=== PATIENT | female | born 1960 | race Two or more races ===

== ENCOUNTER 2019-05-21 21:23 | Emergency (ER) | payer SELFPAY ==
[~2019-05-21] VITALS: Ht 157.5 cm; Wt 74.8 kg
[2019-05-22 02:40] VITALS: BP 164/77
== END 2019-05-22 03:03 | disposition home or self-care (01) ==
LOC: ER 21:28
DX: S33.5XXA Sprain of ligaments of lumbar spine, initial encounter (principal); M62.838 Other muscle spasm; V89.2XXA Person injured in unspecified motor-vehicle accident, traffic, initial encounter; Y93.I9 Activity, other involving external motion; Y92.410 Unspecified street and highway as the place of occurrence of the external cause; Y99.8 Other external cause status
CPT/HCPCS: 70450; 71250; 72125; 72128; 72131; 73130; 74176

== ENCOUNTER 2021-11-13 22:24 | Inpatient (IN) | payer OTHER ==
[~2021-11-13] VITALS: Ht 157.5 cm; Wt 72.4 kg
[2021-11-13 23:05] LABS: Urine WBC None Seen /hpf (0 - 5)
[2021-11-13 23:28] LABS: Basophils # (auto) 0.1 10 ^3/uL (0-0.2); Eosinophils # (auto) 0.2 10 ^3/uL (0-0.8); Eosinophils % (auto) 2.2 % (0.0-7.0); Hematocrit 39.5 % (36.0-46.0); Hemoglobin 13.8 g/dL (12.2-16.2); Lymphocytes # (auto) 2.7 10 ^3/uL (0.4-5.4); Lymphocytes % (auto) 31.3 % (10.0-50.0); Mean Corpuscular Hemoglobin 28.8 pg (28.0-32.0); Mean Corpuscular Volume 82.5 fL (80.0-100.0); Monocytes # (auto) 0.5 10 ^3/uL (0-1.3); Monocytes % (auto) 5.7 % (0.0-12.0); Neutrophils # (auto) 5.1 10 ^3/uL (1.6-8.6); Neutrophils % (auto) 59.8 % (37.0-80.0); Nucleated Red Blood Cells % 0.2 %; Red Blood Cells 4.79 10^6/uL (4.0-5.20); Red Cell Distribution Width 15.2 % (11.8-14.3); White Blood Cell 8.5 10^3/uL (4.4-10.8)
[2021-11-13 23:32] LABS: Urine Bacteria FEW /hpf (None Seen); Urine Blood Negative /uL (Negative); Urine Specific Gravity 1.007 (1.001-1.035)
[2021-11-13 23:55] LABS: Calcium 9.1 mg/dL (8.5-10.1); Potassium 3.8 mmol/L (3.5-5.1)
[2021-11-13 23:59] LABS: BUN/Creatinine Ratio 12.6
[2021-11-14] VITALS (53 sets, daily range): BP systolic 96–162; BP diastolic 40–100
[2021-11-14 00:01] LABS: Bilirubin, Total 0.7 mg/dL (0.2-1.0); Total Protein 7.7 g/dL (6.4-8.2)
[2021-11-14] MEDS ORDERED: DONNATAL 5ml ORAL Elix (BELLADONNA ALK-PHENOBARB) PO ONE (00:45)
[2021-11-14] MEDS ORDERED: ALUM & MAG HYDROX-SIMETH LIQ(MAALOX) 30 ML PO ONE (00:45)
[2021-11-14] MEDS ORDERED: IOHEXOL 350 MG/ML 100ML IJ ONE ×2 (01:02→18:14)
[2021-11-14] MEDS ORDERED: ASPirin 325 MG TAB PO ONE (02:00)
[2021-11-14] MEDS ORDERED: HEPARIN DRIP/D5W 100UNITS/ML 250 ML IV SCH (02:00)
[2021-11-14] MEDS ORDERED: CLOPIDOGREL 300 MG TAB PO ONE (02:00)
[2021-11-14 02:18] LABS: Lactic Acid w/Reflex 2.4 mmol/L (0.4-2.0)
[2021-11-14 02:29] LABS: Magnesium 2.2 mg/dL (1.6-2.6)
[2021-11-14] MEDS ORDERED: NITROGLYCERIN 0.4 MG SL TAB SL ONE ×2 (02:30)
[2021-11-14 02:39] LABS: INR 1.05 (0.9-1.15); Partial Thromboplastin Time 30.2 sec (23.6-33.0)
[2021-11-14] MEDS ORDERED: NITROGLYCERIN 50MG/250ML 250 ML IV ONE (03:00)
[2021-11-14] MEDS ORDERED: HEPARIN SODIUM (PORCINE) 5000 UNITS/ML 1ML VIAL IV ONE (03:45)
[2021-11-14] MEDS ORDERED: ONDANSETRON HCL 4 MG/2 ML VIAL IV PRN (07:00)
[2021-11-14] MEDS: SODIUM CHLORIDE 0.9% 1,000 ML IV SCH ×2 (07:00→20:22)
[2021-11-14] MEDS ORDERED: NITROGLYCERIN 0.4 MG SL TAB SL PRN (07:00)
[2021-11-14 07:52] LABS: Triglycerides 418 mg/dL (< 150)
[2021-11-14 08:10] LABS: Cholesterol 235 mg/dL (< 200); HDL Cholesterol 26 mg/dL (40-59)
[2021-11-14 11:00] LABS: INR 1.07 (0.9-1.15)
[2021-11-14] MEDS: MORPHINE SULFATE INJECTION 2 MG/ML SYRG IV PRN (11:48)
[2021-11-14] MEDS: HEPARIN DRIP/D5W 100UNITS/ML 250 ML IV SCH (14:00)
[2021-11-14] MEDS ORDERED: levoFLOXacin 500MG 100 ML IV ONE (14:00)
[2021-11-14] MEDS: PANTOPRAZOLE 40 MG/10 ML VIAL INJ IV SCH (15:55)
[2021-11-14] MEDS: metroNIDAZOLE 500MG/100ML 100 ML IV SCH ×2 (16:02→21:55)
[2021-11-14] MEDS ORDERED: KETOROLAC TROMETH 30 MG/ML 1ML VIAL IV ONE (18:00)
[2021-11-14] MEDS ORDERED: ANGIOMAX 250 MG VIAL IV ONE (18:13)
[2021-11-14] MEDS ORDERED: fentaNYL CITRATE 100 MCG/2 ML VL ONE (18:13)
[2021-11-14] MEDS ORDERED: HEPARIN IN NS 1000Units/500mL 1,500 ML ONE (18:14)
[2021-11-14] MEDS ORDERED: SODIUM CHL 0.9% 50 ML ONE (18:14)
[2021-11-14] MEDS ORDERED: LIDOCAINE 2%HCL (LOCAL ANESTH.) INJ 20ML MDV ONE (18:14)
[2021-11-14] MEDS ORDERED: MIDAZOLAM HCL 2MG/2ML 2ml VIAL (1mg/ml) ONE (18:14)
[2021-11-14] MEDS ORDERED: ONDANSETRON HCL 4 MG/2 ML VIAL ONE ×2 (18:46→19:36)
[2021-11-14 19:05] LABS: INR 1.06 (0.9-1.15); Partial Thromboplastin Time 39.3 sec (23.6-33.0)
[2021-11-14] MEDS ORDERED: HYDROmorphone HCL 2 MG/ML VL ONE (19:20)
[2021-11-14] MEDS ORDERED: TICAGRELOR 90 MG TAB ONE (19:22)
[2021-11-14] MEDS ORDERED: FUROSEMIDE 20 MG/2 ML VIAL ONE (19:29)
[2021-11-14] MEDS ORDERED: HYDROmorphone HCL 2 MG/ML VL IV PRN (20:15)
[2021-11-14] MEDS: ATORVASTATIN 20 MG TAB PO SCH (21:56)
[2021-11-14] MEDS ORDERED: ATORVASTATIN 20 MG TAB PO SCH (22:00)
[2021-11-15] VITALS (23 sets, daily range): BP systolic 115–151; BP diastolic 57–81
[2021-11-15 02:40] LABS: INR 1.08 (0.9-1.15); Partial Thromboplastin Time 57.7 sec (23.6-33.0)
[2021-11-15] MEDS: HEPARIN DRIP/D5W 100UNITS/ML 250 ML IV SCH ×2 (03:08→19:03)
[2021-11-15 04:13] LABS: Basophils # (auto) 0 10 ^3/uL (0-0.2); Basophils % (auto) 0.6 % (0.0-2.0); Eosinophils # (auto) 0 10 ^3/uL (0-0.8); Eosinophils % (auto) 0.6 % (0.0-7.0); Hematocrit 37.4 % (36.0-46.0); Hemoglobin 12.8 g/dL (12.2-16.2); Lymphocytes # (auto) 1.4 10 ^3/uL (0.4-5.4); Lymphocytes % (auto) 17.3 % (10.0-50.0); Mean Corpuscular Hemoglobin 28.9 pg (28.0-32.0); Mean Corpuscular Hgb Conc. 34.1 g/dL (32.0-36.0); Mean Corpuscular Volume 84.8 fL (80.0-100.0); Monocytes # (auto) 0.4 10 ^3/uL (0-1.3); Neutrophils # (auto) 6.1 10 ^3/uL (1.6-8.6); Neutrophils % (auto) 76.5 % (37.0-80.0); Nucleated Red Blood Cells % 0.2 %; Red Blood Cells 4.41 10^6/uL (4.0-5.20); Red Cell Distribution Width 15.2 % (11.8-14.3); White Blood Cell 7.9 10^3/uL (4.4-10.8)
[2021-11-15 04:30] LABS: Albumin 3.4 g/dL (3.4-5.0); Calcium 8.2 mg/dL (8.5-10.1); Potassium 4.2 mmol/L (3.5-5.1)
[2021-11-15 04:33] LABS: BUN/Creatinine Ratio 13.8; Bilirubin, Total 0.5 mg/dL (0.2-1.0); Total Protein 6.9 g/dL (6.4-8.2)
[2021-11-15] MEDS: metroNIDAZOLE 500MG/100ML 100 ML IV SCH ×3 (05:47→21:38)
[2021-11-15] MEDS: SODIUM CHLORIDE 0.9% 1,000 ML IV SCH (09:40)
[2021-11-15] MEDS ORDERED: CLOPIDOGREL BISULFATE 75 MG TAB PO SCH (10:00)
[2021-11-15] MEDS: ASPirin 81 mg TAB PO SCH (10:41)
[2021-11-15] MEDS: levoFLOXacin 500MG 100 ML IV SCH (10:42)
[2021-11-15] MEDS: PANTOPRAZOLE 40 MG/10 ML VIAL INJ IV SCH (10:42)
[2021-11-15 11:36] LABS: INR 1.07 (0.9-1.15); Partial Thromboplastin Time 40.7 sec (23.6-33.0)
[2021-11-15] MEDS ORDERED: METOCLOPRAMIDE HCL 5MG/ml INJ 2ml VIAL ONE (12:50)
[2021-11-15] MEDS ORDERED: METOCLOPRAMIDE HCL 5MG/ml INJ 2ml VIAL IV PRN (13:00)
[2021-11-15] MEDS ORDERED: KETOROLAC TROMETH 30 MG/ML 1ML VIAL IV ONE (13:15)
[2021-11-15] MEDS ORDERED: POTASSIUM CHL 10 Meq TABLET PO ONE (13:30)
[2021-11-15] MEDS ORDERED: FUROSEMIDE 20 MG/2 ML VIAL IV ONE (13:30)
[2021-11-15 18:39] LABS: INR 1.1 (0.9-1.15)
[2021-11-15] MEDS ORDERED: TPN*HIGH CONC* PER PHARMACY IV NR ×8 (20:00)
[2021-11-15] MEDS: ATORVASTATIN 20 MG TAB PO SCH (21:38)
[2021-11-16] VITALS (24 sets, daily range): BP systolic 113–160; BP diastolic 63–81
[2021-11-16] MEDS: traMADol HCL 50 MG TAB PO PRN ×2 (01:24→10:25)
[2021-11-16 02:18] LABS: INR 1.13 (0.9-1.15); Partial Thromboplastin Time 59.5 sec (23.6-33.0)
[2021-11-16 03:41] LABS: Basophils # (auto) 0.1 10 ^3/uL (0-0.2); Basophils % (auto) 0.8 % (0.0-2.0); Eosinophils # (auto) 0.1 10 ^3/uL (0-0.8); Eosinophils % (auto) 0.9 % (0.0-7.0); Hematocrit 36.7 % (36.0-46.0); Hemoglobin 12.5 g/dL (12.2-16.2); Lymphocytes # (auto) 1.1 10 ^3/uL (0.4-5.4); Lymphocytes % (auto) 14.9 % (10.0-50.0); Mean Corpuscular Hgb Conc. 34.2 g/dL (32.0-36.0); Mean Corpuscular Volume 84.8 fL (80.0-100.0); Monocytes # (auto) 0.4 10 ^3/uL (0-1.3); Monocytes % (auto) 5.8 % (0.0-12.0); Neutrophils # (auto) 5.6 10 ^3/uL (1.6-8.6); Neutrophils % (auto) 77.6 % (37.0-80.0); Nucleated Red Blood Cells % 0.1 %; Red Blood Cells 4.33 10^6/uL (4.0-5.20); Red Cell Distribution Width 15.4 % (11.8-14.3); White Blood Cell 7.2 10^3/uL (4.4-10.8)
[2021-11-16 03:57] LABS: Albumin 3.1 g/dL (3.4-5.0); Calcium 8.2 mg/dL (8.5-10.1); Magnesium 2.2 mg/dL (1.6-2.6); Potassium 3.9 mmol/L (3.5-5.1)
[2021-11-16 03:59] LABS: BUN/Creatinine Ratio 11.8
[2021-11-16 04:01] LABS: Bilirubin, Total 0.8 mg/dL (0.2-1.0); Phosphorus 2.6 mg/dL (2.5-4.90); Total Protein 6.5 g/dL (6.4-8.2)
[2021-11-16] MEDS: metroNIDAZOLE 500MG/100ML 100 ML IV SCH ×3 (05:52→21:04)
[2021-11-16 09:21] LABS: INR 1.14 (0.9-1.15)
[2021-11-16 09:38] LABS: Partial Thromboplastin Time 86.1 sec (23.6-33.0)
[2021-11-16] MEDS: PANTOPRAZOLE 40 MG/10 ML VIAL INJ IV SCH (10:20)
[2021-11-16] MEDS: ASPirin 81 mg TAB PO SCH (10:21)
[2021-11-16] MEDS: levoFLOXacin 500MG 100 ML IV SCH (10:24)
[2021-11-16] MEDS: HEPARIN DRIP/D5W 100UNITS/ML 250 ML IV SCH (10:27)
[2021-11-16] MEDS ORDERED: FUROSEMIDE 40 MG/4 ML VIAL IV ONE (14:00)
[2021-11-16 17:27] LABS: INR 1.17 (0.9-1.15)
[2021-11-16 17:31] LABS: Partial Thromboplastin Time 91.3 sec (23.6-33.0)
[2021-11-16] MEDS: ATORVASTATIN 20 MG TAB PO SCH (21:05)
[2021-11-16] MEDS: SACUBITRIL-VALSARTAN 24mg/26mg TAB PO SCH (21:05)
[2021-11-17] VITALS (24 sets, daily range): BP systolic 98–129; BP diastolic 52–71
[2021-11-17 01:45] LABS: INR 1.17 (0.9-1.15); Partial Thromboplastin Time 55.6 sec (23.6-33.0)
[2021-11-17] MEDS: HEPARIN DRIP/D5W 100UNITS/ML 250 ML IV SCH ×2 (03:54→21:10)
[2021-11-17] MEDS: metroNIDAZOLE 500MG/100ML 100 ML IV SCH ×3 (05:43→21:54)
[2021-11-17 07:38] LABS: INR 1.16 (0.9-1.15); Partial Thromboplastin Time 51.5 sec (23.6-33.0)
[2021-11-17] MEDS: FUROSEMIDE 40 MG/4 ML VIAL IV SCH (09:57)
[2021-11-17] MEDS: PANTOPRAZOLE 40 MG/10 ML VIAL INJ IV SCH (09:57)
[2021-11-17] MEDS: SACUBITRIL-VALSARTAN 24mg/26mg TAB PO SCH ×2 (09:57→21:54)
[2021-11-17] MEDS: levoFLOXacin 500MG 100 ML IV SCH (09:58)
[2021-11-17] MEDS: ASPirin 81 mg TAB PO SCH (09:58)
[2021-11-17] MEDS ORDERED: ONDANSETRON HCL 4 MG/2 ML VIAL IV PRN (11:30)
[2021-11-17 16:00] LABS: INR 1.17 (0.9-1.15); Partial Thromboplastin Time 51.7 sec (23.6-33.0)
[2021-11-17] MEDS: ATORVASTATIN 20 MG TAB PO SCH (21:54)
[2021-11-18] VITALS (20 sets, daily range): BP systolic 95–130; BP diastolic 46–70
[2021-11-18 03:52] LABS: Basophils # (auto) 0 10 ^3/uL (0-0.2); Basophils % (auto) 0.6 % (0.0-2.0); Eosinophils # (auto) 0.2 10 ^3/uL (0-0.8); Eosinophils % (auto) 2.5 % (0.0-7.0); Hematocrit 40.1 % (36.0-46.0); Lymphocytes % (auto) 28.5 % (10.0-50.0); Mean Corpuscular Hemoglobin 29.3 pg (28.0-32.0); Mean Corpuscular Volume 83.7 fL (80.0-100.0); Monocytes # (auto) 0.5 10 ^3/uL (0-1.3); Monocytes % (auto) 7.1 % (0.0-12.0); Neutrophils # (auto) 4.3 10 ^3/uL (1.6-8.6); Neutrophils % (auto) 61.3 % (37.0-80.0); Nucleated Red Blood Cells % 0.3 %; Red Blood Cells 4.79 10^6/uL (4.0-5.20); Red Cell Distribution Width 15.3 % (11.8-14.3)
[2021-11-18 04:12] LABS: Potassium 3.8 mmol/L (3.5-5.1)
[2021-11-18 04:21] LABS: Albumin 3.3 g/dL (3.4-5.0); BUN/Creatinine Ratio 21.2; Bilirubin, Total 0.8 mg/dL (0.2-1.0); Calcium 8.6 mg/dL (8.5-10.1); Total Protein 7.1 g/dL (6.4-8.2)
[2021-11-18] MEDS: MORPHINE SULFATE INJECTION 2 MG/ML SYRG IV PRN (04:33)
[2021-11-18] MEDS: metroNIDAZOLE 500MG/100ML 100 ML IV SCH ×3 (05:59→22:59)
[2021-11-18 09:33] LABS: INR 1.17 (0.9-1.15); Partial Thromboplastin Time 49.3 sec (23.6-33.0)
[2021-11-18] MEDS: SACUBITRIL-VALSARTAN 24mg/26mg TAB PO SCH ×2 (10:01→23:00)
[2021-11-18] MEDS: PANTOPRAZOLE 40 MG/10 ML VIAL INJ IV SCH (10:01)
[2021-11-18] MEDS: ASPirin 81 mg TAB PO SCH (10:01)
[2021-11-18] MEDS: levoFLOXacin 500MG 100 ML IV SCH (10:07)
[2021-11-18] MEDS: FUROSEMIDE 40 MG/4 ML VIAL IV SCH (10:08)
[2021-11-18] MEDS: HEPARIN DRIP/D5W 100UNITS/ML 250 ML IV SCH (14:52)
[2021-11-18 18:52] LABS: INR 1.21 (0.9-1.15); Partial Thromboplastin Time 58.6 sec (23.6-33.0)
[2021-11-18] MEDS: ATORVASTATIN 20 MG TAB PO SCH (23:00)
[2021-11-19] VITALS (13 sets, daily range): BP systolic 99–149; BP diastolic 45–73
[2021-11-19 00:05] LABS: INR 1.21 (0.9-1.15)
[2021-11-19 00:11] LABS: Partial Thromboplastin Time 75.6 sec (23.6-33.0)
[2021-11-19 04:19] LABS: Basophils # (auto) 0 10 ^3/uL (0-0.2); Basophils % (auto) 0.5 % (0.0-2.0); Eosinophils # (auto) 0.2 10 ^3/uL (0-0.8); Eosinophils % (auto) 2.5 % (0.0-7.0); Hematocrit 36.6 % (36.0-46.0); Hemoglobin 13.1 g/dL (12.2-16.2); Lymphocytes # (auto) 1.9 10 ^3/uL (0.4-5.4); Lymphocytes % (auto) 26.8 % (10.0-50.0); Mean Corpuscular Hemoglobin 29.6 pg (28.0-32.0); Mean Corpuscular Hgb Conc. 35.8 g/dL (32.0-36.0); Mean Corpuscular Volume 82.5 fL (80.0-100.0); Monocytes # (auto) 0.6 10 ^3/uL (0-1.3); Monocytes % (auto) 7.8 % (0.0-12.0); Neutrophils # (auto) 4.5 10 ^3/uL (1.6-8.6); Neutrophils % (auto) 62.4 % (37.0-80.0); Nucleated Red Blood Cells % 0.2 %; Red Blood Cells 4.43 10^6/uL (4.0-5.20); Red Cell Distribution Width 15.2 % (11.8-14.3); White Blood Cell 7.2 10^3/uL (4.4-10.8)
[2021-11-19] MEDS: HEPARIN DRIP/D5W 100UNITS/ML 250 ML IV SCH (04:22)
[2021-11-19 04:30] LABS: INR 1.16 (0.9-1.15); Partial Thromboplastin Time 64.6 sec (23.6-33.0)
[2021-11-19 04:31] LABS: Albumin 3.1 g/dL (3.4-5.0); BUN/Creatinine Ratio 18.6; Calcium 8.3 mg/dL (8.5-10.1); Potassium 3.4 mmol/L (3.5-5.1)
[2021-11-19 04:43] LABS: Bilirubin, Total 0.5 mg/dL (0.2-1.0)
[2021-11-19] MEDS: metroNIDAZOLE 500MG/100ML 100 ML IV SCH ×3 (06:51→22:02)
[2021-11-19] MEDS: PANTOPRAZOLE 40 MG/10 ML VIAL INJ IV SCH (09:35)
[2021-11-19] MEDS: levoFLOXacin 500MG 100 ML IV SCH (09:35)
[2021-11-19] MEDS: FUROSEMIDE 40 MG/4 ML VIAL IV SCH (09:35)
[2021-11-19] MEDS: SACUBITRIL-VALSARTAN 24mg/26mg TAB PO SCH ×2 (11:49→22:02)
[2021-11-19] MEDS: ASPirin 81 mg TAB PO SCH (11:50)
[2021-11-19 13:03] LABS: INR 1.14 (0.9-1.15); Partial Thromboplastin Time 48.2 sec (23.6-33.0)
[2021-11-19] MEDS ORDERED: POTASSIUM CHL 20 Meq TABLET PO ONE (14:30)
[2021-11-19 20:04] LABS: INR 1.21 (0.9-1.15)
[2021-11-19 20:08] LABS: Partial Thromboplastin Time 72.8 sec (23.6-33.0)
[2021-11-19] MEDS: ATORVASTATIN 20 MG TAB PO SCH (22:03)
[2021-11-20] VITALS (21 sets, daily range): BP systolic 103–143; BP diastolic 44–76
[2021-11-20 04:53] LABS: Potassium 3.5 mmol/L (3.5-5.1)
[2021-11-20 04:54] LABS: Calcium 8.5 mg/dL (8.5-10.1)
[2021-11-20] MEDS: metroNIDAZOLE 500MG/100ML 100 ML IV SCH ×3 (05:27→21:52)
[2021-11-20] MEDS: HEPARIN DRIP/D5W 100UNITS/ML 250 ML IV SCH (05:49)
[2021-11-20 08:08] LABS: INR 1.14 (0.9-1.15)
[2021-11-20 08:22] LABS: Basophils # (auto) 0.1 10 ^3/uL (0-0.2); Basophils % (auto) 0.9 % (0.0-2.0); Eosinophils # (auto) 0.2 10 ^3/uL (0-0.8); Eosinophils % (auto) 3.5 % (0.0-7.0); Hematocrit 36.6 % (36.0-46.0); Hemoglobin 12.8 g/dL (12.2-16.2); Lymphocytes # (auto) 1.9 10 ^3/uL (0.4-5.4); Lymphocytes % (auto) 31.4 % (10.0-50.0); Mean Corpuscular Hemoglobin 29.2 pg (28.0-32.0); Mean Corpuscular Hgb Conc. 34.9 g/dL (32.0-36.0); Mean Corpuscular Volume 83.5 fL (80.0-100.0); Monocytes # (auto) 0.6 10 ^3/uL (0-1.3); Monocytes % (auto) 8.9 % (0.0-12.0); Neutrophils # (auto) 3.4 10 ^3/uL (1.6-8.6); Neutrophils % (auto) 55.3 % (37.0-80.0); Nucleated Red Blood Cells % 0.4 %; Red Blood Cells 4.38 10^6/uL (4.0-5.20); Red Cell Distribution Width 15.5 % (11.8-14.3); White Blood Cell 6.2 10^3/uL (4.4-10.8)
[2021-11-20] MEDS: SACUBITRIL-VALSARTAN 24mg/26mg TAB PO SCH ×2 (10:24→21:52)
[2021-11-20] MEDS: levoFLOXacin 500MG 100 ML IV SCH (10:24)
[2021-11-20] MEDS: FUROSEMIDE 40 MG TAB PO SCH (10:25)
[2021-11-20] MEDS: ASPirin 81 mg TAB PO SCH (10:27)
[2021-11-20] MEDS: POTASSIUM CHL 20 Meq TABLET PO SCH (10:27)
[2021-11-20] MEDS: PANTOPRAZOLE 40 MG/10 ML VIAL INJ IV SCH (10:27)
[2021-11-20] MEDS ORDERED: POTASSIUM CHL 20 Meq TABLET PO ONE (11:00)
[2021-11-20] MEDS: ATORVASTATIN 20 MG TAB PO SCH (21:52)
[2021-11-20] MEDS: TICAGRELOR 60 MG TAB PO SCH (21:52)
[2021-11-21] VITALS (9 sets, daily range): BP systolic 97–158; BP diastolic 40–74
[2021-11-21] MEDS: metroNIDAZOLE 500MG/100ML 100 ML IV SCH (06:22)
[2021-11-21] MEDS ORDERED: levoFLOXacin 500 MG TAB PO SCH (10:00)
[2021-11-21] MEDS: FUROSEMIDE 40 MG TAB PO SCH (10:42)
[2021-11-21] MEDS: ASPirin 81 mg TAB PO SCH (10:42)
[2021-11-21] MEDS: SACUBITRIL-VALSARTAN 24mg/26mg TAB PO SCH (10:43)
[2021-11-21] MEDS: POTASSIUM CHL 20 Meq TABLET PO SCH (10:43)
[2021-11-21] MEDS ORDERED: DOCUSATE SOD 100 MG CAP PO ONE (11:15)
[2021-11-21] MEDS ORDERED: LACTULOSE 20Gm/30ML SOLN PO ONE (11:15)
[2021-11-21] MEDS ORDERED: SACU1TAB PO (11:21)
[2021-11-21] MEDS ORDERED: ASPI1CHW15 PO (11:21)
[2021-11-21] MEDS ORDERED: ATOR20TA50 PO (11:21)
[2021-11-21] MEDS ORDERED: TICA1TAB PO (11:21)
[2021-11-21] MEDS ORDERED: LEVO-28 PO (11:21)
[2021-11-21] MEDS ORDERED: POTA-220 PO (11:21)
[2021-11-21] MEDS ORDERED: FURO40TA4 PO (11:21)
[2021-11-21] MEDS ORDERED: METR500T PO (11:21)
[2021-11-21] MEDS: traMADol HCL 50 MG TAB PO PRN (12:43)
[2021-11-21] MEDS: TICAGRELOR 60 MG TAB PO SCH (12:44)
== END 2021-11-21 16:01 | disposition home or self-care (01) | DRG 246 ==
LOC: ER 22:24 → ICU WEST 11-14 06:55 → DOU IN ICU 11-20 05:55
PROVIDERS: ADMIT Nurse Practitioner; ATTEND Internal Medicine
PROC: 027034Z Dilation of Coronary Artery, One Artery with Drug-eluting Intraluminal Device, Percutaneous Approach (ICD-10-PCS; principal; 2021-11-14)
PROC: 4A023N7 Measurement of Cardiac Sampling and Pressure, Left Heart, Percutaneous Approach (ICD-10-PCS; 2021-11-14)
PROC: B2111ZZ Fluoroscopy of Multiple Coronary Arteries using Low Osmolar Contrast (ICD-10-PCS; 2021-11-14)
PROC: B21F1ZZ Fluoroscopy of Other Bypass Graft using Low Osmolar Contrast (ICD-10-PCS; 2021-11-14)
PROC: B3121ZZ Fluoroscopy of Left Subclavian Artery using Low Osmolar Contrast (ICD-10-PCS; 2021-11-14)
PROC: B3141ZZ Fluoroscopy of Left Common Carotid Artery using Low Osmolar Contrast (ICD-10-PCS; 2021-11-14)
DX: I21.4 Non-ST elevation (NSTEMI) myocardial infarction (principal); I50.41 Acute combined systolic (congestive) and diastolic (congestive) heart failure; J96.01 Acute respiratory failure with hypoxia; K80.00 Calculus of gallbladder with acute cholecystitis without obstruction; E66.9 Obesity, unspecified; E78.5 Hyperlipidemia, unspecified; I25.10 Atherosclerotic heart disease of native coronary artery without angina pectoris; Z87.11 Personal history of peptic ulcer disease; Z68.27 Body mass index [BMI] 27.0-27.9, adult
CPT/HCPCS: 36415; 71045; 74177; 76705; 78226; 80048; 80053; 80061; 81001; 82150; 83605; 83690; 83735; 83880; 84100; 84484; 85025; 85379; 85610; 85730; 87081; 93005; 93306; 96365; 96366; 96368; 96376; 97163; 99152; 99153; C1874; C9113; G0378; J1956; J2250; J2405; J3490